=== PATIENT | male | born 1945 | race Caucasian/White ===

== ENCOUNTER 2020-04-28 17:41 | Emergency (ER) | payer MEDICARE, BC ==
--- NOTE | 2020-04-28 18:16 | EDM.PDOC ---
ED HPI GENERAL MEDICAL PROBLEM - General Chief Complaint: General Stated Complaint: PAIN IN SIDES,FATIGUE,HEADACHE Time Seen by Provider: 04/28/20 18:30 Source of Information: Reports: Patient History Limitations: Reports: No Limitations - History of Present Illness INITIAL COMMENTS - FREE TEXT/NARRATIVE: 74-year-old male had a pulse oximeter at home that read 79 and it scared him so he came in to be checked. On arrival his oximeter was checked and he was reading the numbers upside down, the levels are actually 97. He has an intermittent right lateral chest discomfort that lasts a few seconds, intermittent anterior left chest discomfort, a periorbital headache that is off and on, and intermittent groin pain and weakness in his legs. All his symptoms have been going on for months. No fevers or chills, no cough, no nausea or vomiting. Onset: Unknown/Unsure Duration: Chronic Location: Reports: Head, Chest, Lower Extremity, Left, Lower Extremity, Right Associated Symptoms: Reports: Chest Pain, Headaches (Left periorbital headaches), Weakness. Denies: Confusion, Cough, Diaphoresis, Fever/Chills, Malaise, Nausea/Vomiting, Shortness of Breath - Related Data Allergies Allergy/AdvReac Type Severity Reaction Status Date / Time No Known Allergies Allergy Verified 04/28/20 18:03 Home Meds: Home Meds Aspirin 81 mg PO BID 01/20/14 [History] LORazepam [Ativan] 1 mg PO BEDTIME 01/20/14 [History] Simvastatin 20 mg PO BEDTIME 01/20/14 [History] atenoloL [Tenormin] 50 mg PO DAILY 01/20/14 [History] lisinopriL [Prinivil] 10 mg PO DAILY 01/20/14 [History] metFORMIN [Glucophage XR] 1,000 mg PO BID 01/20/14 [History] Insulin Aspart [NovoLOG] 49 unit SQ BEDTIME 04/28/20 [History] PARoxetine [Paxil] 1 tab PO DAILY 04/28/20 [History] Past Medical History Cardiovascular History: Reports: Angina Musculoskeletal History: Reports: Back Pain, Chronic ED ROS GENERAL - Review of Systems Review Of Systems: See Below Constitutional: Reports: Malaise, Weakness. Denies: Fever, Chills HEENT: Reports: Other (Left periorbital eye pain, headache). Denies: Vision Change Respiratory: Reports: Shortness of Breath (Occasional shortness of breath with activity). Denies: Cough Cardiovascular: Reports: Chest Pain (Focal chest pain in the left anterior chest and right lateral chest) GI/Abdominal: Reports: No Symptoms : Reports: Other (Occasional groin pain, especially on the right side) Musculoskeletal: Reports: Other (Achy lower extremities) Skin: Reports: No Symptoms. Denies: Rash (No rash over painful areas) Neurological: Reports: No Symptoms, Headache Psychiatric: Reports: No Symptoms ED EXAM, GENERAL - Physical Exam Exam: See Below Exam Limited By: No Limitations General Appearance: Alert, No Apparent Distress Eye Exam: Bilateral Eye: Normal Inspection Head: Atraumatic Respiratory/Chest: No Respiratory Distress, Lungs Clear, Other (I cannot reproduce chest wall pain with palpation) Cardiovascular: Regular Rate, Rhythm. No: Extra Beats GI/Abdominal: Soft, Non-Tender Neurological: Alert, Oriented Psychiatric: Normal Affect, Normal Mood Skin Exam: Warm, Dry. No: Rash (No rash over painful areas) Course - Vital Signs Last Recorded V/S: Last Vital Signs Temp 97.9 F 04/28/20 18:23 Pulse 73 04/28/20 18:23 Resp 14 04/28/20 18:23 BP 179/81 H 04/28/20 19:05 Pulse Ox 97 04/28/20 18:23 - Orders/Labs/Meds Orders: Active Orders 24 hr Category Date Time Status Chest 2V [CR] Routine Exams 04/28/20 18:38 Taken Labs: Laboratory Tests 04/28/20 04/28/20 Range/Units 18:53 18:53 WBC 6.6 (4.5-11.0) K/uL RBC 4.85 (4.30-5.90) M/uL Hgb 13.1 (12.0-15.0) g/dL Hct 40.1 (40.0-54.0) % MCV 83 (80-98) fL MCH 27 (27-31) pg MCHC 33 (32-36) % Plt Count 194 (150-400) K/uL Neut % (Auto) 64 (36-66) % Lymph % (Auto) 23 L (24-44) % Baker % (Auto) 10 H (2-6) % Eos % (Auto) 2 (2-4) % Baso % (Auto) 1 (0-1) % Sodium 138 L (140-148) mmol/L Potassium 4.3 (3.6-5.2) mmol/L Chloride 100 (100-108) mmol/L Carbon Dioxide 26 (21-32) mmol/L Anion Gap 16.3 H (5.0-14.0) mmol/L BUN 22 H (7-18) mg/dL Creatinine 1.1 (0.8-1.3) mg/dL Est Cr Clr Drug Dosing 55.92 mL/min Estimated GFR (MDRD) > 60 (>60) Glucose 149 H (74-106) mg/dL Calcium 9.3 (8.5-10.1) mg/dL Troponin I 0.053 (0.000-0.056) ng/mL - Re-Assessments/Exams Free Text/Narrative Re-Assessment/Exam: 04/28/20 18:44 CBC, BMP and two-view chest x-ray was obtained. Also troponin. Offered a Covid test but patient declined. Explained to them that these are all chronic problems, the chest pain is not typical for cardiac with its brief sharp recurring nature. 04/28/20 19:15 Labs were reassuring, 2 view chest x-ray was normal. No further treatment is necessary at this time, copies of the labs are given to the patient and he will keep his yearly physical as scheduled in a few weeks. Departure - Departure Time of Disposition: 19:25 Disposition: Home, Self-Care 01 Clinical Impression: Costochondritis - Discharge Information Instructions: Costochondritis, [id number] Referrals: PCP,None [Primary Care Provider] - Forms: ED Department Discharge Care Plan Goals: Continue your current medications, increase activity as tolerated and recheck at your regular physical as scheduled. Take your labs with you to your physical. Return anytime if worsening or concerns. Sepsis Event Note (ED) - Focused Exam Vital Signs: Vital Signs Temp Pulse Resp BP Pulse Ox 04/28/20 19:05 179/81 H 04/28/20 18:23 97.9 F 73 14 181/79 H 97 - My Orders Last 24 Hours: My Active Orders 04/28/20 18:38 Chest 2V [CR] Routine - Assessment/Plan Last 24 Hours: My Active Orders 04/28/20 18:38 Chest 2V [CR] Routine
--- NOTE | 2020-04-30 08:57 | CR ---
CHEST: 2 view CLINICAL HISTORY:Dyspnea COMPARISON:None FINDINGS: The heart size, pulmonary vascularity and hilar structures are normal. No infiltrate effusion or pneumothorax is seen. IMPRESSION: No acute cardiopulmonary process.
== END 2020-04-28 19:25 | disposition home or self-care (01) ==
LOC: JP.ED 17:41
DX: M94.0 Chondrocostal junction syndrome [Tietze] (principal); Z79.82 Long term (current) use of aspirin; Z79.899 Other long term (current) drug therapy
CPT/HCPCS: 36415; 71046; 71046-26; 80048; 84484; 85025; 99283; 99285-25